=== PATIENT | female | born 1990 | race Caucasian/White ===

== ENCOUNTER 2019-02-09 21:06 | Emergency (ER) | payer SELFPAY ==
[~2019-02-09] VITALS: Ht 175.3 cm; Wt 79.2 kg
[2019-02-09 21:08] VITALS: BP 136/92
--- NOTE | 2019-02-09 22:15 | NUR ---
not in lobby
--- NOTE | 2019-02-09 22:32 | NUR ---
not in lobby
--- NOTE | 2019-02-09 22:38 | NUR ---
PT NOT IN LOBBY. PER REGISTRATION, PT LEFT
== END 2019-02-09 23:39 | disposition left against medical advice (07) ==
LOC: ED 22:30
DX: N93.8 Other specified abnormal uterine and vaginal bleeding (principal); Z53.21 Procedure and treatment not carried out due to patient leaving prior to being seen by health care provider

== ENCOUNTER 2019-02-12 20:31 | Emergency (ER) | payer MEDICAID ==
[~2019-02-12] VITALS: Ht 175.3 cm; Wt 79.2 kg
[2019-02-12] MEDS ORDERED: HALOPERIDOL 5 MG/ML ONE (20:51)
--- NOTE | 2019-02-12 20:55 | NUR ---
PT IN [place] ROOM WITHIN VIEW OF NURSES SATION AND FREQUENT CHECKS FOR SAFETY
[2019-02-12] MEDS ORDERED: SODIUM CHLORIDE 0.9% 1,000ML IVBOLUS ONE (21:00)
[2019-02-12] MEDS ORDERED: HALOPERIDOL 5 MG/ML IM ONE (21:00)
[2019-02-12] MEDS ORDERED: ZIPRASIDONE 20 MG INJ IM ONE (21:00)
[2019-02-12] MEDS ORDERED: SODIUM CHLORIDE FLUSH 10ML SYR IVF ONE (21:00)
--- NOTE | 2019-02-12 21:04 | NUR ---
BERNADINE ORDERED INITITALLY, TO ROOM TO ADMINISTER, PT BEGINS SCREAMING THAT BERNADINE MAKES HER SUICIDAL, UNABLE TO GATHER ALLERGY INFORMATION DUE TO PTS FLIGHT OF IDEAS AND INTERMITTENT SCREAMING. PT STATES THAT SHE CAN HAVE GIBRAN MERCADO AWARE AND MEDS ORDERED AND SECURITY CALLED TO ASSIST PT SOMEWHAT COMBATIVE, INJECTION GIVEN AND TOLERATE WELL, TAKING PO FLUIDS AT THIS TIME, KEEP REASSURING THAT SHE IS IN SAFE PLACE. CLOSE MONITORING
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
--- NOTE | 2019-02-12 21:15 | NUR ---
PT HAS SCRATCHES ALL OVER ABD AND BACK, NO BUGS VISUALIZED. PT CALMLY, OCCASSIONAL SCREAMING OUTBURST
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
[2019-02-12] MEDS ORDERED: KETOROLAC 30 MG/1 ML ONE ×2 (21:50→22:08)
[2019-02-12] MEDS ORDERED: KETOROLAC 30 MG/1 ML IM ONE (22:00)
[2019-02-12 22:01] LABS: BASOPHILS # (AUTO) 0.02 x10^3/uL (0-0.1); BASOPHILS % (AUTO) 0 % (0-1); EOSINOPHILS # (AUTO) 0.08 x10^3/uL (0-0.4); EOSINOPHILS % (AUTO) 1 % (1-7); LYMPHOCYTES # (AUTO) 2.19 x10^3/uL (1-3.4); LYMPHOCYTES % (AUTO) 28 % (22-44); MD NO; MEAN CORPUSCULAR HGB CONC 33.2 g/dL (32.4-35.8); MEAN CORPUSCULAR VOLUME 99.3 fL (80-100); MEAN PLATELET VOLUME 8.4 fL (7.4-10.4); MONOCYTES # (AUTO) 0.68 x10^3/uL (0.2-0.8); MONOCYTES % (AUTO) 9 % (2-9); NEUTROPHILS # (AUTO) 4.79 x10^3/uL (1.8-6.8); NEUTROPHILS % (AUTO) 62 % (42-75); PLATELET COUNT 218 x10^3/uL (130-400); RED BLOOD COUNT 3.85 x10^6/uL (3.82-5.3); RED CELL DISTRIBUTION WIDTH 14.7 % (9.6-15.2)
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
[2019-02-12 22:12] LABS: ALANINE AMINOTRANSFERASE 34 U/L (12-78); ALBUMIN 3.4 g/dL (3.4-5.0); ANION GAP 8 mmol/L (5-15); CALCIUM 8.5 mg/dL (8.5-10.1); CHLORIDE 111 mmol/L (98-107); CREATININE 0.87 mg/dL (0.55-1.02); SALICYLATE LEVEL < 1.7 mg/dL (2.8-20.0)
--- NOTE | 2019-02-12 22:16 | NUR ---
PT REPORTS THAT SHE IS IN [place] FROM [email or web address] AND HER BOYFRIEND IS CURRENTLY IN ASSISTED
[2019-02-12 22:17] LABS: ALKALINE PHOSPHATASE 75 U/L (45-117); BILIRUBIN,TOTAL 0.8 mg/dL (0.2-1.0); TOTAL PROTEIN 6.4 g/dL (6.4-8.2)
[2019-02-12 22:21] LABS: AMPHETAMINE SCREEN, URINE Positive (Negative); BARBITURATE SCREEN, URINE Negative (Negative); BENZODIAZEPINE SCREEN, URINE Negative (Negative); CANNABINOID SCREEN, URINE Positive (Negative); COCAINE SCREEN, URINE Negative (Negative); METHADONE SCREEN, URINE Negative (Negative); OPIATE SCREEN, URINE Negative (Negative)
--- NOTE | 2019-02-12 22:35 | NUR ---
SLEPEING QUIETLY, RESP RATE EVEN AND REGULAR, NSR MONITOR WITHOUT ECTOPY.
--- NOTE | 2019-02-12 23:16 | NUR ---
IV DC, CATH INTACT. PT CLEARING HOWEVER CONTINUES WITH FLIGHT OF IDEAS. COOPERATIVE
[2019-02-12 23:46] VITALS: BP 116/61
--- NOTE | 2019-02-12 23:46 | NUR ---
REPORT TO TRAVIS BRENNER MOVED TO ROOM 38 IN ER, PT CURRENTLY AWARE THAT SHE IS AT [facility]. REMAINS SOMNOLENT AND COOPERATIVE.
--- NOTE | 2019-02-12 23:48 | NUR ---
Received pt and report from RONEN Leal. Pt transferred to room 38. Pt is currently lethargic and sleeping, however, is arousable and able to answer questions appropriately. Pt is A + O x 4 when awake but falls asleep shortly after answering questions. VS's within normal limits. Pt will be monitored by sitter. Will continue to monitor.
--- NOTE | 2019-02-13 00:28 | NUR ---
Note denise in ED - 02/13/19 at 0031 by JESSE Pt observed to be perspiring while sleeping and difficult to arouse. Pt repostioned from prone to supine. Pt not responding verbally but he is able to follow directions when nurse was getting vital signs. Pt's vitals were taken and all VS's were in normal range. Respirations normal and even. Sitter in doorway. Will continue to observe.
--- NOTE | 2019-02-13 01:40 | NUR ---
Pt currently sleeping. Even respirations observed. Sitter in doorway. Will coninue to monitor.
--- NOTE | 2019-02-13 02:58 | NUR ---
Pt currently sleeping. Even respirations observed. Sitter in doorway. Will coninue to monitor.
--- NOTE | 2019-02-13 04:15 | NUR ---
Pt currently sleeping. Even respirations observed. Sitter in doorway. Will coninue to monitor.
--- NOTE | 2019-02-13 05:02 | NUR ---
Pt currently sleeping. Even respirations observed. Sitter in doorway. Will coninue to monitor.
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
== END 2019-02-13 06:16 | disposition home or self-care (01) ==
LOC: ED 21:12
DX: F15.951 Other stimulant use, unspecified with stimulant-induced psychotic disorder with hallucinations (principal)
CPT/HCPCS: 36415; 72072; 72110; 80053; 80307; 84703; 85025; 93005; 96372; 99284; J1630; J1885